=== PATIENT | female | born 1970 | race Caucasian/White ===

== ENCOUNTER 2020-05-22 07:42 | Inpatient (IN) | payer MEDICAID, OTHER ==
[~2020-05-22] VITALS: Ht 162.6 cm; Wt 145.5 kg
[2020-05-22 08:25] LABS: Hematocrit 46.6 % (36.0-46.0); Hemoglobin 15.4 g/dL (12.2-16.2); Mean Corpuscular Hemoglobin 28.5 pg (28.0-32.0); Mean Corpuscular Hgb Conc. 33.1 g/dL (32.0-36.0); Platelet Count (auto) 310 10^3/uL (140-450); Red Blood Cells 5.42 10^6/uL (4.0-5.20); Red Cell Distribution Width 14.7 % (11.8-14.3); White Blood Cell 5.3 10^3/uL (4.4-10.8)
[2020-05-22 08:41] LABS: Albumin 2.9 g/dL (3.4-5.0); Calcium 8.7 mg/dL (8.5-10.1); Potassium 4.1 mmol/L (3.5-5.1)
[2020-05-22 08:42] LABS: Band Neutrophils % (manual) 0; Basophils % (manual) 0 (0.0-2.0); Blast Cells 0; Eosinophils % (manual) 0 (0-7); Metamyelocytes % 0; Myelocytes % 0; Promyelocytes % 0; Reactive Lymphocytes 0
[2020-05-22 08:44] LABS: Bilirubin, Total 0.3 mg/dL (0.2-1.0); Total Protein 7.8 g/dL (6.4-8.2)
[2020-05-22 09:14] LABS: Lymphocytes % (manual) 29 (10.0-50.0); Monocytes % (manual) 10 (0-12)
[2020-05-22] MEDS ORDERED: PROMETHAZINE HCL 25 MG/ML 1ML IV ONE (16:15)
[2020-05-22] MEDS ORDERED: DOXYCYCLINE 100MG/250ML 250 ML IV ONE (16:15)
[2020-05-22] MEDS ORDERED: DexAMETHasone SOD PHOS 10MG/1ML VIAL INJ IV ONE (16:15)
[2020-05-22] MEDS ORDERED: ACETAMINOPHEN 500 MG TAB PO PRN (17:00)
[2020-05-22] MEDS ORDERED: MORPHINE SULF INJ 2 MG/ML SYRINGE 1ML IV PRN ×2 (17:00)
[2020-05-22] MEDS ORDERED: HYDROcodone-ACET 5/325MG TAB PO PRN (17:00)
[2020-05-22] MEDS ORDERED: NITROGLYCERIN 0.4 MG SL TAB SL PRN (17:00)
[2020-05-22] MEDS ORDERED: DEXTROSE (50%) 50ML SYRG IV PRN (17:00)
[2020-05-22] MEDS: ACCU-CHEK COMFORT CURVE STRIP VI SCH ×2 (17:33→22:00)
[2020-05-22] MEDS: InsuLIN REG 1unit/0.01ml Soln (100units/ml) SC SCH ×2 (17:34→22:00)
[2020-05-22 19:36] LABS: CRP High Sensitivity 11.6 mg/dL (< 0.3)
[2020-05-22] MEDS: BUDESONIDE (INHALATION) 180 MCG IH IN SCH (21:59)
[2020-05-22] MEDS: ENOXAPARIN SOD 40 MG/0.4 ML SYRINGE SC SCH (23:19)
[2020-05-23 06:30] LABS: Basophils # (auto) 0 10 ^3/uL (0-0.2); Basophils % (auto) 0.3 % (0.0-2.0); Eosinophils # (auto) 0 10 ^3/uL (0-0.8); Eosinophils % (auto) 0.5 % (0.0-7.0); Hematocrit 43.1 % (36.0-46.0); Hemoglobin 14.7 g/dL (12.2-16.2); Lymphocytes # (auto) 1.9 10 ^3/uL (0.4-5.4); Lymphocytes % (auto) 26.8 % (10.0-50.0); Mean Corpuscular Hemoglobin 29.4 pg (28.0-32.0); Mean Corpuscular Hgb Conc. 34.1 g/dL (32.0-36.0); Monocytes # (auto) 1.1 10 ^3/uL (0-1.3); Monocytes % (auto) 15.9 % (0.0-12.0); Neutrophils % (auto) 56.5 % (37.0-80.0); Nucleated Red Blood Cells % 0.1 %; Platelet Count (auto) 329 10^3/uL (140-450); Red Blood Cells 5.01 10^6/uL (4.0-5.20); Red Cell Distribution Width 14.5 % (11.8-14.3)
[2020-05-23 06:38] LABS: Potassium 4.1 mmol/L (3.5-5.1)
[2020-05-23 06:46] LABS: Albumin 2.6 g/dL (3.4-5.0); BUN/Creatinine Ratio 18.5; Bilirubin, Total 0.3 mg/dL (0.2-1.0); Calcium 8.6 mg/dL (8.5-10.1); Total Protein 7.5 g/dL (6.4-8.2)
--- NOTE | 2020-05-23 06:52 | NUR ---
Respiratory note: PT SEEN, NO DISTRESS NOTED. HR 76, RR 16, SPO2 93% ON 4L N/C. NO MDI'S AT BEDSIDE. WILL CALL PHARMACY
[2020-05-23] MEDS: BUDESONIDE (INHALATION) 180 MCG IH IN SCH ×2 (06:53→19:44)
[2020-05-23] MEDS: InsuLIN REG 1unit/0.01ml Soln (100units/ml) SC SCH ×4 (06:58→21:46)
[2020-05-23] MEDS: ACCU-CHEK COMFORT CURVE STRIP VI SCH ×4 (06:59→21:38)
[2020-05-23] MEDS: DexAMETHasone SOD PHOS 10MG/1ML VIAL INJ IV SCH (10:49)
[2020-05-23] MEDS: cefTRIAXone 1GM/50ML D5W 50 ML IV SCH (10:49)
[2020-05-23] MEDS: CHOLECALCIFEROL (VITD3) 2,000 UNIT CAP PO SCH (10:50)
[2020-05-23] MEDS: ASCORBIC ACID 1,000 MG TAB PO SCH (10:50)
[2020-05-23] MEDS: ENOXAPARIN SOD 40 MG/0.4 ML SYRINGE SC SCH ×2 (10:50→21:38)
[2020-05-23] MEDS: ZINC SULFATE 220mg CAP or TAB PO SCH (10:50)
[2020-05-23] MEDS: AZITHROMYCIN 500MG/ 250ML 250 ML IV SCH (11:04)
[2020-05-23] MEDS: ALBUTEROL SULF HFA 90MCG INH 200DOSE IN PRN ×2 (14:13→21:06)
--- NOTE | 2020-05-23 16:04 | NUR ---
Telemetry admit from ER ACELA admitted to Telemetry unit after SBAR WAS NOT RECIEVED. Patient oriented to PAUL FREITAS, primary RN, unit, room, bed, and unit policies regarding patient care and visiting hours. Patient now on continuous telemetry monitoring, tele box # 80 and telemetry reading on arrival to unit is . Patient placed on bedside oxygen, weighed by bed scale and encouraged to call if they need something. All questions and concerns addressed, patient verbalized understanding. Note:
--- NOTE | 2020-05-23 16:10 | NUR ---
PT WALKED TO RESTROOM WITH PORTABLE OXYGEN STEADY GAIT NOTED
[2020-05-23 17:08] VITALS: BP 139/93
--- NOTE | 2020-05-23 19:30 | NUR ---
Opening Shift Note Assumed care of patient, awake and alert. No S/S of distress/SOB or pain. Insructed on POC and to callfor assist PRN, will continue to monitor for changes Q1hr and PRN. Fall and safety precautions in place. Call light within reach.
[2020-05-23 22:00] VITALS: BP 141/81
[2020-05-24 05:00] VITALS: BP 122/71
[2020-05-24] MEDS ORDERED: HYDR-392 PO (06:32)
[2020-05-24] MEDS ORDERED: METF-370 PO (06:32)
[2020-05-24] MEDS ORDERED: ASPI-543 PO (06:32)
[2020-05-24] MEDS ORDERED: CHOL20007 PO (06:32)
[2020-05-24] MEDS ORDERED: LOVA20TA4 PO (06:32)
[2020-05-24] MEDS ORDERED: LISI-285 PO (06:32)
[2020-05-24] MEDS: ACCU-CHEK COMFORT CURVE STRIP VI SCH ×4 (06:33→21:15)
[2020-05-24] MEDS: InsuLIN REG 1unit/0.01ml Soln (100units/ml) SC SCH ×4 (06:33→21:29)
[2020-05-24 06:55] LABS: Urine Bacteria NONE SEEN /hpf (None Seen); Urine Blood Negative /uL (Negative); Urine Hyaline Cast FEW /lpf (0 - 2); Urine Mucus FEW (None Seen); Urine Specific Gravity 1.019 (1.001-1.035); Urine WBC 1 /hpf (0 - 5)
[2020-05-24 07:29] LABS: Potassium 4.2 mmol/L (3.5-5.1)
[2020-05-24 07:36] LABS: BUN/Creatinine Ratio 24.4; Calcium 9.2 mg/dL (8.5-10.1)
--- NOTE | 2020-05-24 08:00 | NUR ---
RECEIVED PATIENT ALERT AND ORIENTED X4, WHEEZING LUNG SOUNDS IN BILATERAL UPPER AND DIMINISHED LOWER LUNG LOBES, RR=20 SAT=91% WITH 6L O2 NC, DENIED SOB AND CHEST PAIN, SR R=72 ON TELE MONITOR, ABDOMEN SOFT WITH ACTIVE BS, LAST BM ON 05/22/20 REPORTED, SKIN INTACT, RADIAL AND PEDAL PULSES PALPABLE, NOT IN DISTRESS, DENIED PAIN, RESTING ON BED, HEAD OF BED ELEVATED, BED ON LOW POSITION, RAILS UP X2, CALL LIGHT ON REACH, WILL CONTINUE MONITORING.
[2020-05-24] MEDS: BUDESONIDE (INHALATION) 180 MCG IH IN SCH ×2 (10:00→23:14)
[2020-05-24] MEDS ORDERED: REMDESIVIR PER PHARMACY 0 ML IV SCH (11:00)
[2020-05-24] MEDS: DexAMETHasone SOD PHOS 10MG/1ML VIAL INJ IV SCH (11:45)
[2020-05-24] MEDS: ZINC SULFATE 220mg CAP or TAB PO SCH (11:47)
[2020-05-24] MEDS: ASCORBIC ACID 1,000 MG TAB PO SCH (11:47)
[2020-05-24] MEDS: AZITHROMYCIN 500MG/ 250ML 250 ML IV SCH (11:47)
[2020-05-24] MEDS: CHOLECALCIFEROL (VITD3) 2,000 UNIT CAP PO SCH (11:48)
[2020-05-24] MEDS: ENOXAPARIN SOD 40 MG/0.4 ML SYRINGE SC SCH ×2 (11:48→21:14)
[2020-05-24] MEDS: cefTRIAXone 1GM/50ML D5W 50 ML IV SCH (12:10)
[2020-05-24] MEDS: ALBUTEROL SULF HFA 90MCG INH 200DOSE IN PRN ×2 (14:17→23:13)
--- NOTE | 2020-05-24 14:28 | NUR ---
NOT IN DISTRESS, DENIED PAIN, CONSENT FOR BLOOD AND PLASMA WAS SIGNED AND ON CHART, BLOOD BANK CONTACTED FOR PENDING PLASMA FOLLOW UP AND UPDATES, ORDER IS PENDING REPORTED, WILL CONTINUE MONITORING.
[2020-05-24] MEDS ORDERED: REMDESIVIR 200 MG in NS 210ml LOADING DOSE ADULT IV ONE (15:00)
[2020-05-24 17:00] VITALS: BP 125/82
--- NOTE | 2020-05-24 19:21 | NUR ---
SAT=90%, RESTING ON BED, NOT IN DISTRESS, HEAD OF BED ELEVATED, BED ON LOW POSITION, RAILS UP X2, CALL LIGHT ON REACH, REPORT WAS GIVEN TO THE TANK CHARGER RN.
[2020-05-24 22:00] VITALS: BP 135/73
[2020-05-25 05:00] VITALS: BP 106/73
[2020-05-25] MEDS: InsuLIN REG 1unit/0.01ml Soln (100units/ml) SC SCH ×4 (07:00→22:00)
[2020-05-25 07:03] LABS: Potassium 4.5 mmol/L (3.5-5.1)
[2020-05-25] MEDS: ACCU-CHEK COMFORT CURVE STRIP VI SCH ×4 (07:03→22:06)
[2020-05-25 07:04] LABS: Basophils # (auto) 0 10 ^3/uL (0-0.2); Basophils % (auto) 0.1 % (0.0-2.0); Eosinophils # (auto) 0 10 ^3/uL (0-0.8); Hemoglobin 14.2 g/dL (12.2-16.2); Lymphocytes # (auto) 1.4 10 ^3/uL (0.4-5.4); Lymphocytes % (auto) 19.3 % (10.0-50.0); Mean Corpuscular Hgb Conc. 32.4 g/dL (32.0-36.0); Mean Corpuscular Volume 86.5 fL (80.0-100.0); Monocytes # (auto) 0.8 10 ^3/uL (0-1.3); Neutrophils % (auto) 69.6 % (37.0-80.0); Nucleated Red Blood Cells % 0.2 %; Platelet Count (auto) 351 10^3/uL (140-450); Red Blood Cells 5.09 10^6/uL (4.0-5.20); Red Cell Distribution Width 14.6 % (11.8-14.3); White Blood Cell 7.1 10^3/uL (4.4-10.8)
[2020-05-25 07:12] LABS: Albumin 2.5 g/dL (3.4-5.0); Bilirubin, Total 0.3 mg/dL (0.2-1.0); Calcium 9.1 mg/dL (8.5-10.1); Total Protein 7.3 g/dL (6.4-8.2)
[2020-05-25] MEDS: ALBUTEROL SULF HFA 90MCG INH 200DOSE IN PRN ×2 (07:50→20:14)
[2020-05-25] MEDS: BUDESONIDE (INHALATION) 180 MCG IH IN SCH ×2 (07:50→20:13)
--- NOTE | 2020-05-25 08:00 | NUR ---
Opening Shift Note Assumed care of patient, awake and alert. No S/S of distress/SOB or pain. Instructed on POC and to call for assist PRN, call light within reach, bed is locked, in lowest position with side rails upX2. Will continue to monitor for changes Q1hr and PRN.
[2020-05-25 09:00] VITALS: BP 123/72
[2020-05-25] MEDS: ENOXAPARIN SOD 40 MG/0.4 ML SYRINGE SC SCH ×2 (10:19→22:06)
[2020-05-25] MEDS: cefTRIAXone 1GM/50ML D5W 50 ML IV SCH (10:20)
[2020-05-25] MEDS: DexAMETHasone SOD PHOS 10MG/1ML VIAL INJ IV SCH (10:20)
[2020-05-25] MEDS: ASCORBIC ACID 1,000 MG TAB PO SCH (10:20)
[2020-05-25] MEDS: CHOLECALCIFEROL (VITD3) 2,000 UNIT CAP PO SCH (10:20)
[2020-05-25] MEDS: ZINC SULFATE 220mg CAP or TAB PO SCH (10:20)
--- NOTE | 2020-05-25 10:49 | NUR ---
Nutrition Assessment Est energy needs 8048-0750 kcal (11-13 kcal/kg BW 147.7kg) Est protein needs 55-71g (1-1.3g/kg IBW 55kg) Will monitor and reassess prn. Addendum: 05/25/20 at [address] Amended: Links added.
[2020-05-25] MEDS: AZITHROMYCIN 500MG/ 250ML 250 ML IV SCH (11:33)
[2020-05-25 13:16] VITALS: BP 125/81
[2020-05-25] MEDS: REMDESIVIR 100 MG in SODIUM CHL 0.9% 250 ML IV SCH (15:02)
[2020-05-25 16:46] VITALS: BP 133/86
--- NOTE | 2020-05-25 18:00 | NUR ---
Remdesivir Infusion Pt tolerated Remdesivir therapy well without any s/sx of adverse reactions. Pre VS: 138/79, 71 AZ, O2 92%, 15 min after infusion: 144/80, 68 AZ, O2 90%, Post infusion: 133/86, 66 AZ, O2 93%.
--- NOTE | 2020-05-25 19:24 | NUR ---
Closing Note Endorsed care to night RN. Pt is resting in bed with comfort, regular breathing, no s/sx of SOB or distress.
--- NOTE | 2020-05-25 19:30 | NUR ---
Opening Shift Note Assumed care of patient, asleep. No S/S of distress/SOB or pain. Insructed on POC and to callfor assist PRN, will continue to monitor for changes Q1hr and PRN. Fall and safety precautions in place. Call light within reach.
[2020-05-25 22:00] VITALS: BP 103/69
[2020-05-26] VITALS (9 sets, daily range): BP systolic 107–153; BP diastolic 67–94
[2020-05-26] MEDS: ACCU-CHEK COMFORT CURVE STRIP VI SCH ×4 (06:28→22:09)
[2020-05-26] MEDS: InsuLIN REG 1unit/0.01ml Soln (100units/ml) SC SCH ×4 (06:29→22:00)
[2020-05-26 06:31] LABS: Potassium 4.5 mmol/L (3.5-5.1)
[2020-05-26 06:36] LABS: Albumin 2.6 g/dL (3.4-5.0); BUN/Creatinine Ratio 27.4; Calcium 8.6 mg/dL (8.5-10.1)
[2020-05-26 06:39] LABS: Bilirubin, Total 0.2 mg/dL (0.2-1.0); Total Protein 6.5 g/dL (6.4-8.2)
--- NOTE | 2020-05-26 08:00 | NUR ---
Opening Shift Note Assumed care of patient, pt is awake and A&OX4. No S/S of distress/SOB or pain. Instructed on POC and to call for assist PRN, call light within reach, bed is locked, in lowest position with side rails upX2. Will continue to monitor for changes Q1hr and PRN.
[2020-05-26] MEDS: cefTRIAXone 1GM/50ML D5W 50 ML IV SCH (08:07)
[2020-05-26] MEDS: DexAMETHasone SOD PHOS 10MG/1ML VIAL INJ IV SCH (08:08)
[2020-05-26] MEDS: ZINC SULFATE 220mg CAP or TAB PO SCH (08:08)
[2020-05-26] MEDS: AZITHROMYCIN 500MG/ 250ML 250 ML IV SCH (08:08)
[2020-05-26] MEDS: ASCORBIC ACID 1,000 MG TAB PO SCH (08:08)
[2020-05-26] MEDS: CHOLECALCIFEROL (VITD3) 2,000 UNIT CAP PO SCH (08:08)
[2020-05-26] MEDS: ENOXAPARIN SOD 40 MG/0.4 ML SYRINGE SC SCH ×2 (08:08→22:07)
--- NOTE | 2020-05-26 08:40 | NUR ---
O2 Titration Pt on 6L/min via NC with O2 sat of 93%. Pt was titrated down to 4L/min via NC maintaining O2 sat above 93%. Will continue to monitor O2 sat closely.
[2020-05-26] MEDS: BUDESONIDE (INHALATION) 180 MCG IH IN SCH ×2 (10:00→21:06)
--- NOTE | 2020-05-26 13:30 | NUR ---
O2 Titration Pt on 4L/min via NC with O2 sat of 95%. Pt was titrated down to 3L/min via NC maintaining O2 sat above 93%. Will continue to monitor O2 sat closely.
[2020-05-26] MEDS: REMDESIVIR 100 MG in SODIUM CHL 0.9% 250 ML IV SCH (15:00)
--- NOTE | 2020-05-26 16:30 | NUR ---
Remdesivir Infusion Pt tolerated Remdesivir therapy well without any s/sx of adverse reactions. Pre VS: 143/90, 69 DC, O2 95%, 15 min after infusion: 135/83, 63 DC, O2 93%, Post infusion: 144/87, 68 DC, O2 93%.
[2020-05-26] MEDS: ALBUTEROL SULF HFA 90MCG INH 200DOSE IN PRN ×2 (16:32→22:54)
--- NOTE | 2020-05-26 17:00 | NUR ---
O2 Titration Pt on 3L/min via NC with O2 sat of 96%. Pt was titrated down to 2L/min via NC maintaining O2 sat above 95%. Will continue to monitor O2 sat closely.
--- NOTE | 2020-05-26 18:00 | NUR ---
IV removal & New IV Insertion Rt. hand IV DC'd due to s/sx of swelling of redness at the site. IV removed with sterile technique, catheter fully intact. Pressure dressing applied to site. Patient tolerated procedure well. New IV was inserted on LFA 20G using sterile technique. Pt tolerated the procedure well. NOTE:
--- NOTE | 2020-05-26 18:37 | NUR ---
Conv. Plasma Infusion Completed infusion of conv. plasma and pt denies any s/sx of SOB or distress at this time. Pt tolerated the procedure well.
--- NOTE | 2020-05-26 19:25 | NUR ---
Closing Note Endorsed care to night RN. Pt is resting in bed with comfort, regular breathing, no s/sx of SOB or distress.
[2020-05-27 05:00] VITALS: BP 120/67
[2020-05-27] MEDS: InsuLIN REG 1unit/0.01ml Soln (100units/ml) SC SCH ×4 (06:45→22:00)
[2020-05-27] MEDS: ACCU-CHEK COMFORT CURVE STRIP VI SCH ×4 (06:45→22:19)
[2020-05-27 09:00] VITALS: BP 107/64
[2020-05-27] MEDS: cefTRIAXone 1GM/50ML D5W 50 ML IV SCH (09:00)
[2020-05-27] MEDS: AZITHROMYCIN 500MG/ 250ML 250 ML IV SCH (09:42)
[2020-05-27] MEDS: DexAMETHasone SOD PHOS 10MG/1ML VIAL INJ IV SCH (09:42)
[2020-05-27] MEDS: ZINC SULFATE 220mg CAP or TAB PO SCH (09:42)
[2020-05-27] MEDS: CHOLECALCIFEROL (VITD3) 2,000 UNIT CAP PO SCH (09:43)
[2020-05-27] MEDS: ASCORBIC ACID 1,000 MG TAB PO SCH (09:43)
[2020-05-27] MEDS: ENOXAPARIN SOD 40 MG/0.4 ML SYRINGE SC SCH ×2 (09:43→21:48)
[2020-05-27] MEDS: BUDESONIDE (INHALATION) 180 MCG IH IN SCH ×2 (11:00→20:54)
[2020-05-27 11:35] LABS: Albumin 2.7 g/dL (3.4-5.0); Calcium 8.7 mg/dL (8.5-10.1)
[2020-05-27 11:39] LABS: BUN/Creatinine Ratio 25.9; Bilirubin, Total 0.2 mg/dL (0.2-1.0); Total Protein 6.6 g/dL (6.4-8.2)
--- NOTE | 2020-05-27 13:00 | NUR ---
room air Patient saturating 95% on 2L via NC, placed on room air and O2 saturations remain >93%.
[2020-05-27 13:11] VITALS: BP 105/74
--- NOTE | 2020-05-27 14:20 | NUR ---
Remdesivir 3/4 Infusion Pt tolerated Remdesivir therapy well. Pre VS: 125/76, 74PR, O2 92%, after 15 min of infusion: 108/68, 67 DC, O2 91%, Post infusion: 103/69, 69PR, O2 92%. Addendum: 05/27/20 at 1735 by NATI GUERRERO RN RN [id number]
[2020-05-27] MEDS: REMDESIVIR 100 MG in SODIUM CHL 0.9% 250 ML IV SCH (15:10)
[2020-05-27] MEDS: ALBUTEROL SULF HFA 90MCG INH 200DOSE IN PRN ×2 (15:51→20:54)
--- NOTE | 2020-05-27 16:08 | NUR ---
Dr. Thomas at bed side
[2020-05-27 17:20] VITALS: BP 103/79
--- NOTE | 2020-05-27 20:00 | NUR ---
OPENING SHIFT NOTE Assumed care of patient who is A&O x4. Currently on RA with no s/s of distress. Denies pain at this time. PIV in left forearm is intact and patent. Flushed with 10ml NS. Patient is ambulatory without the use of assistive devices. POC discussed. Patient instructed to call for assistance when needed. WIll continue to monitor for changes PRN.
[2020-05-27 21:00] VITALS: BP 135/84
[2020-05-28 05:00] VITALS: BP 125/78
[2020-05-28 05:13] VITALS: BP 125/78
[2020-05-28] MEDS: InsuLIN REG 1unit/0.01ml Soln (100units/ml) SC SCH ×3 (06:51→17:00)
[2020-05-28] MEDS: ACCU-CHEK COMFORT CURVE STRIP VI SCH ×3 (06:51→17:00)
[2020-05-28] MEDS: ALBUTEROL SULF HFA 90MCG INH 200DOSE IN PRN (07:20)
[2020-05-28] MEDS: BUDESONIDE (INHALATION) 180 MCG IH IN SCH (07:20)
[2020-05-28 07:35] LABS: Albumin 2.9 g/dL (3.4-5.0); Potassium 4.5 mmol/L (3.5-5.1)
[2020-05-28 07:38] LABS: BUN/Creatinine Ratio 26.1
[2020-05-28 07:41] LABS: Bilirubin, Total 0.3 mg/dL (0.2-1.0); Total Protein 6.8 g/dL (6.4-8.2)
[2020-05-28 08:00] VITALS: BP 131/80
[2020-05-28] MEDS: cefTRIAXone 1GM/50ML D5W 50 ML IV SCH (08:04)
[2020-05-28 09:00] VITALS: BP 131/80
[2020-05-28] MEDS ORDERED: AZITHROMYCIN 250 MG TAB PO SCH (10:00)
[2020-05-28] MEDS ORDERED: DexAMETHasone 4 MG TAB PO SCH (10:00)
[2020-05-28] MEDS: ZINC SULFATE 220mg CAP or TAB PO SCH (10:47)
[2020-05-28] MEDS: ASCORBIC ACID 1,000 MG TAB PO SCH (10:48)
[2020-05-28] MEDS: CHOLECALCIFEROL (VITD3) 2,000 UNIT CAP PO SCH (10:48)
--- NOTE | 2020-05-28 11:01 | NUR ---
Nutrition Followup Note Wt 145.5kg Pt is covid positive in covid isolation. Pt with no new distress per RN note. Pt is with a good appetite aeb pt with >75% of po intake x 2 days per Rn note Est energy needs [id number] kcal (11-13 kcal/kg BW 147.7kg) Est protein needs 55-71g (1-1.3g/kg IBW 55kg) Will monitor and reassess prn. Labs: BUN 31H, Creat 1.19H, Alb 2.9L BM: Pt with 2 BMs 05/28 per Rn note Skin: BS 20 low risk,full details in palliative care nurse note PES: Altered nutrition related labs r/t current and chronic medical condition aeb pt with elevated RFTs, hypoalb Obesity r/t caloric intake in excess of needs aeb pt with a BMI of 55.9kg/m2 Comments 1) Continue to monitor po intake, labs, skin 2) refer pt to [facility] on DC 3) Continue current plan of care Expected Outcomes/Goals: 1) pt po intake >75% 2) pt labs to improve 3) f/u 3-5 days
[2020-05-28] MEDS: ENOXAPARIN SOD 40 MG/0.4 ML SYRINGE SC SCH (11:42)
[2020-05-28 13:00] VITALS: BP 133/85
[2020-05-28] MEDS: REMDESIVIR 100 MG in SODIUM CHL 0.9% 250 ML IV SCH (15:00)
[2020-05-28 17:00] VITALS: BP 117/79
--- NOTE | 2020-05-28 18:25 | NUR ---
PATIENT DISCHARGED HOME WITH FAMILY. ALL IV ACCESS DISCONTINUED. TELEMETRY BOX REMOVED AND RETURNED TO TELEMETRY DEPARTMENT. ALL DISCHARGE INSTRUCTIONS GIVEN. ALL DISCHARGE PAPERWORK SIGNED.
== END 2020-05-28 18:25 | disposition home or self-care (01) | DRG 137 ==
LOC: ER 07:42 → TELE 17:08 → TELE-WESTW 05-23 16:01
PROVIDERS: ADMIT Nurse Practitioner Acute Care; ATTEND Internal Medicine
PROC: XW13325 Transfusion of Convalescent Plasma (Nonautologous) into Peripheral Vein, Percutaneous Approach, New Technology Group 5 (ICD-10-PCS; principal; 2020-05-24)
PROC: XW033E5 Introduction of Remdesivir Anti-infective into Peripheral Vein, Percutaneous Approach, New Technology Group 5 (ICD-10-PCS; 2020-05-24)
DX: U07.1 COVID-19 (principal); J12.89 Other viral pneumonia; J96.01 Acute respiratory failure with hypoxia; E66.01 Morbid (severe) obesity due to excess calories; D68.59 Other primary thrombophilia; I12.9 Hypertensive chronic kidney disease with stage 1 through stage 4 chronic kidney disease, or unspecified chronic kidney disease; J44.0 Chronic obstructive pulmonary disease with (acute) lower respiratory infection; Q61.3 Polycystic kidney, unspecified; N18.30 Chronic kidney disease, stage 3 unspecified; E11.22 Type 2 diabetes mellitus with diabetic chronic kidney disease; G47.33 Obstructive sleep apnea (adult) (pediatric); Z79.84 Long term (current) use of oral hypoglycemic drugs; Z68.43 Body mass index [BMI] 50.0-59.9, adult; Z79.899 Other long term (current) drug therapy
CPT/HCPCS: 36415; 71045; 80048; 80053; 81001; 82728; 82962; 83036; 83605; 83615; 85007; 85025; 85027; 85379; 86141; 86850; 86900; 86901; 87040; 87426; 87804; 94640; 96365; 96375; 99291; G0378; J0696; J1100; J1815; J3490